=== PATIENT | female | born 1990 | race Caucasian/White ===

== ENCOUNTER 2022-06-10 12:24 | Day surgery (SDC) | payer OTHER ==
[2022-06-10] MEDS ORDERED: LIDOCAINE HCL 2% 100 MG/5 ML IJ ONE (12:25)
[2022-06-10] MEDS ORDERED: DIPRIVAN 200 MG/20 ML IV ONE ×2 (15:29→15:32)
[2022-06-10] MEDS ORDERED: Lactated Ringers 1,000 ML IV ONE ×2 (15:46→17:20)
--- NOTE | 2022-06-10 19:27 | XRAY ---
Indication: Bilateral L4-S1 MBB. Intraoperative fluoroscopy provided for 22 seconds. Single digital spot image submitted for interpretation demonstrates posterior needle tips projecting over the expected left and right L4-S1 nerve roots. Correlate with intraoperative findings/report.
--- NOTE | 2022-06-11 08:29 | XRAY ---
22 seconds of fluoroscopy was used in surgery for a bilateral L4-S1 MBB.
== END 2022-06-10 15:49 | disposition home or self-care (01) ==
LOC: SDC-PAIN 12:24
PROVIDERS: ATTEND Psychiatry & Neurology Pain Medicine
DX: M47.816 Spondylosis without myelopathy or radiculopathy, lumbar region (principal); Z79.899 Other long term (current) drug therapy
CPT/HCPCS: 64493; 64494; 72020; 77002; 81025; J2704

== ENCOUNTER 2022-09-02 14:30 | Day surgery (SDC) | payer OTHER ==
[2022-09-02] MEDS ORDERED: Depo-Medrol 40 MG/ML IM ONE (14:31)
[2022-09-02] MEDS ORDERED: BUPIVACAINE 0.5% VIAL IJ ONE (14:31)
[2022-09-02] MEDS ORDERED: Lactated Ringers 1,000 ML IV ONE (16:45)
[2022-09-02] MEDS ORDERED: DIPRIVAN 200 MG/20 ML IV ONE (16:49)
--- NOTE | 2022-09-02 18:44 | XRAY ---
Indication: Bilateral L4-S1 MBB. Intraoperative fluoroscopy provided for 12 seconds. Single digital spot image submitted for interpretation demonstrates posterior needle tips projecting over the expected left and right L4-S1 nerve roots. Correlate with intraoperative findings/report.
--- NOTE | 2022-09-03 08:41 | XRAY ---
12 seconds of fluoroscopy was used in surgery for a bilateral L4-S1 MBB.
== END 2022-09-02 17:09 | disposition home or self-care (01) ==
LOC: SDC-PAIN 14:30
PROVIDERS: ATTEND Psychiatry & Neurology Pain Medicine
DX: M47.816 Spondylosis without myelopathy or radiculopathy, lumbar region (principal); Z79.899 Other long term (current) drug therapy
CPT/HCPCS: 64493; 64494; 72020; 77002; 81025; J1030; J2704

== ENCOUNTER 2022-10-21 11:50 | Day surgery (SDC) | payer OTHER ==
[2022-10-21] MEDS ORDERED: Depo-Medrol 40 MG/ML IM ONE (11:51)
[2022-10-21] MEDS ORDERED: Xylocaine 1% Vial 30 ML PF IJ ONE (11:51)
[2022-10-21] MEDS ORDERED: BUPIVACAINE 0.5% VIAL IJ ONE (11:51)
[2022-10-21] MEDS ORDERED: DIPRIVAN 200 MG/20 ML IV ONE ×2 (14:22→14:29)
[2022-10-21] MEDS ORDERED: Lactated Ringers 1,000 ML IV ONE (17:03)
--- NOTE | 2022-10-21 19:41 | XRAY ---
Indication: Right L4-S1 RFA. Intraoperative fluoroscopy provided for 22 seconds. 3 digital spot submitted for interpretation demonstrates posterior needle tips projecting over the expected right L4-S1 nerve roots. Correlate with intraoperative findings/report.
--- NOTE | 2022-10-21 20:02 | XRAY ---
22 seconds fluoroscopy time in surgery for right L4-S1 RFA.
== END 2022-10-21 14:48 | disposition home or self-care (01) ==
LOC: SDC-PAIN 11:50
PROVIDERS: ATTEND Psychiatry & Neurology Pain Medicine
DX: M47.816 Spondylosis without myelopathy or radiculopathy, lumbar region (principal); Z79.899 Other long term (current) drug therapy
CPT/HCPCS: 64635; 64636; 72100; 77002; 81025; J1030; J2001; J2704

== ENCOUNTER 2022-10-28 11:36 | Day surgery (SDC) | payer OTHER ==
[2022-10-28] MEDS ORDERED: BUPIVACAINE 0.5% VIAL IJ ONE (11:37)
[2022-10-28] MEDS ORDERED: XYLOCAINE-MPF 1% 5ML SDV IJ ONE (11:37)
[2022-10-28] MEDS ORDERED: Depo-Medrol 40 MG/ML IM ONE (11:37)
[2022-10-28] MEDS ORDERED: DIPRIVAN 200 MG/20 ML IV ONE (14:25)
--- NOTE | 2022-10-28 15:15 | XRAY ---
Indication: Left L4-S1 RFA. Intraoperative fluoroscopy provided for 23 seconds. 5 digital spot images submitted for interpretation demonstrates posterior needle tips projecting over the expected left L4-S1 nerve roots. Correlate with intraoperative findings/report.
[2022-10-28] MEDS ORDERED: Lactated Ringers 1,000 ML IV ONE (16:33)
--- NOTE | 2022-10-28 16:44 | XRAY ---
23 seconds of fluoroscopy was used in surgery for a left L4-S1 RFA.
== END 2022-10-28 15:00 | disposition home or self-care (01) ==
LOC: SDC-PAIN 11:36
PROVIDERS: ATTEND Psychiatry & Neurology Pain Medicine
DX: M47.816 Spondylosis without myelopathy or radiculopathy, lumbar region (principal); Z79.899 Other long term (current) drug therapy
CPT/HCPCS: 64635; 64636; 72100; 77002; 81025; J1030; J2704

== ENCOUNTER 2023-04-21 14:06 | Day surgery (SDC) | payer OTHER ==
[2023-04-21] MEDS ORDERED: Depo-Medrol 40 MG/ML IM ONE (14:07)
[2023-04-21] MEDS ORDERED: BUPIVACAINE 0.5% VIAL IJ ONE (14:07)
[2023-04-21 15:05] LABS: HCG URINE TEST NEGATIVE (NEGATIVE)
[2023-04-21] MEDS ORDERED: DIPRIVAN 200 MG/20 ML IV ONE ×2 (16:08→16:17)
[2023-04-21] MEDS ORDERED: MORPHINE SULFATE 2 MG INJ ONE (16:26)
[2023-04-21] MEDS ORDERED: Lactated Ringers 1,000 ML IV ONE (17:02)
--- NOTE | 2023-04-21 22:06 | XRAY ---
Indication: Bilateral SI joint injection. Intraoperative fluoroscopy provided for 17 seconds. 4 digital spot image submitted for interpretation demonstrates posterior needle tip projecting over the left and right SI joints. Correlate with intraoperative findings/report.
--- NOTE | 2023-04-22 10:21 | XRAY ---
17 seconds of fluoroscopy was used in surgery for a bilateral sacroiliac joint injection.
== END 2023-04-21 16:45 | disposition home or self-care (01) ==
LOC: SDC-PAIN 14:06
PROVIDERS: ATTEND Psychiatry & Neurology Pain Medicine
DX: M46.1 Sacroiliitis, not elsewhere classified (principal); Z79.899 Other long term (current) drug therapy
CPT/HCPCS: 27096; 72202; 77002; 81025; J1030; J2270; J2704; G0260

== ENCOUNTER 2024-02-01 07:32 | Day surgery (SDC) | payer OTHER ==
[2024-02-01] MEDS ORDERED: EXPAREL 133 MG/10 ML VIAL IJ ONE (07:33)
[2024-02-01 08:07] VITALS: RESP 18
[2024-02-01] MEDS ORDERED: TYLENOL EXTRA STRENGTH 500 MG ONE (08:10)
[2024-02-01] MEDS ORDERED: CEFAZOLIN 2 GM-D5W BAG** 2 GM/50 ML ML IV ONE (08:10)
[2024-02-01] MEDS ORDERED: NEURONTIN ONE (08:11)
[2024-02-01] MEDS ORDERED: celeBREX 100 MG ONE (08:11)
[2024-02-01] MEDS ORDERED: Lactated Ringers 1,000 ML IV ONE ×2 (08:11→12:02)
[2024-02-01] MEDS ORDERED: Decadron 4 MG ONE (08:11)
[2024-02-01] MEDS: Decadron 4 MG PO ONE (08:13)
[2024-02-01] MEDS: TYLENOL EXTRA STRENGTH 500 MG PO ONE (08:13)
[2024-02-01] MEDS: NEURONTIN PO ONE (08:13)
[2024-02-01] MEDS: celeBREX 100 MG PO ONE (08:13)
[2024-02-01] MEDS: Lactated Ringers 1,000 ML IV SCH (08:14)
[2024-02-01] MEDS: CEFAZOLIN 2 GM-D5W BAG** 2 GM/50 ML ML IV SCH (08:14)
[2024-02-01 08:38] LABS: Hematocrit 35.4 % (35-47); Hemoglobin 11.6 g/dL (12.0-16.0); Mean Cell Volume 89.2 fL (78-100); Mean Corpuscular Hemoglobin 29.2 pg (26-32); Mean Corpuscular Hgb Concent. 32.8 g/dL (32-36); Mean Platelet Volume 9.3 fL (7.5-11.0); Platelet Count 208 x10^3/uL (150-450); Red Blood Count 3.97 x10^6/uL (4.1-5.4); Red Cell Distribution Width 12.3 % (11.5-14.0)
[2024-02-01 08:42] LABS: HCG SERUM TEST NEGATIVE (NEGATIVE)
[2024-02-01 08:45] LABS: ANION GAP 9.8 MEQ/L (5-15); BILIRUBIN,TOTAL 0.2 mg/dL (0.2-1.3); Calcium 9.1 mg/dL (8.4-10.2); Creatinine 1 0.82 mg/dL (0.52-1.04); EST GLOMERULAR FILTRATION RATE 96.2 ML/MIN; Potassium 3.9 mmol/L (3.5-5.1)
[2024-02-01] MEDS ORDERED: Xylocaine 1% Vial 30 ML PF IJ ONE (09:41)
[2024-02-01] MEDS ORDERED: Marcaine Mpf 0.5% Vial 30 Ml ONE ×2 (09:41→13:01)
[2024-02-01] MEDS ORDERED: Versed 2 MG/2 ML Injection ONE ×2 (10:02→13:03)
[2024-02-01] MEDS ORDERED: SUBLIMAZE 100 MCG/2 ML ONE ×2 (10:03→12:35)
[2024-02-01] MEDS ORDERED: Zofran 4 MG/2 ML VIAL ONE (10:03)
[2024-02-01] MEDS ORDERED: DIPRIVAN 200 MG/20 ML IV ONE ×2 (10:04→10:11)
[2024-02-01] MEDS ORDERED: Xylocaine-Mpf 2% 5 Ml Vial ONE (10:04)
[2024-02-01] MEDS ORDERED: DEXMEDETOMIDINE 80 MCG/20ML-NS IV ONE (10:22)
[2024-02-01] MEDS ORDERED: Hydromorphone 1 mg/ml Injection ONE (12:36)
--- NOTE | 2024-02-01 12:41 | XRAY ---
Indication: Left foot Lapidus arthrodesis, medial collateral ligament repair, and bunion repair. Intraoperative fluoroscopy provided for 4 minutes 10 seconds. 45 digital spot images submitted for interpretation ultimately demonstrates 1st tarsometatarsal fusion with intact hardware. Correlate with intraoperative findings/report.
[2024-02-01] MEDS ORDERED: Epinephrine Preservative Free 1 MG/ML ONE (12:58)
[2024-02-01 14:52] VITALS: O2SAT 95
[2024-02-01 15:17] VITALS: BP 102/66; PULSE 95; TEMP 97
--- NOTE | 2024-02-02 12:05 | OP ---
SURGERY DATE/TIME: 02/01/2024 1001 PREOPERATIVE DIAGNOSES: 1) Left foot pain. 2) Hypermobility of left foot. 3) Hallux abductovalgus. 4) Atavistic metatarsal head. 5) Weakness of medial collateral ligament/laxity of medial collateral ligament. POSTOPERATIVE DIAGNOSES: 1) Left foot pain. 2) Hypermobility of left foot. 3) Hallux abductovalgus. 4) Atavistic metatarsal head. 5) Weakness of medial collateral ligament/laxity of medial collateral ligament. PROCEDURES: 1) Lapidus arthrodesis left tarsometatarsal joint. 2) Silver osteotomy first atavistic metatarsal. 3) Medial collateral ligament repair with capsulotomy left foot. SURGEON: Ed Ayers DPM. STENCIL SPRAYER: None. ANESTHESIA: General. HEMOSTASIS: Thigh tourniquet set to 300 mm of Mercury for 90 total tourniquet minutes. ESTIMATED BLOOD LOSS: Approximately 10 cc. MATERIALS: 4-0 Monocryl, 3-0 Nylon, Naveed InCore Lapidus with a 5.9 x 28 mm post with a 3.5 x 42 and 3.5 x 28 screw, a 1.45 JuggerKnot to a 2.9 Betta Link for the medial collateral ligament repair. INJECTABLES: 30 cc of a 1:1 mixture of 1% lidocaine plain to the left ankle preoperatively and then a popliteal block postoperatively. See anesthesia report for details. INDICATION FOR SURGERY: Mireya is a very pleasant 33-year-old female who presented to my clinic with concerns of hallux abductovalgus and severe bunion to the left foot. The patient had derangement of her sesamoids as well as abductovarus rotation of her first metatarsal. Given the severity and hypermobility that was seen on x-ray, a Lapidus procedure was the selected procedure. The patient was made aware that if there was any adaptation as a result of the bunion, we would have to address this in order to restore the appropriate range of motion and keep the position of the toe adequate. The patient understands all risks, benefits and complications of surgical intervention at this time including but not limited to infection, hematoma, seroma, possibility of delayed wound healing, nonwound healing, possibility of nonbone healing, possibility of delayed bone healing, possible irritating hardware and possible need for removal of said hardware at a later date. No guarantees were provided as to the outcome of surgical intervention. It is at this time, we decided to proceed. DESCRIPTION OF PROCEDURE AND FINDINGS: The patient was brought into the OR and placed on the OR table in the supine position. At this time, general anesthesia was administered until the patient was adequately sedated. A well-padded thigh tourniquet was applied to the patient's left thigh and the tourniquet was set to 300 mm of Mercury. At this time, the left lower extremity was prepped and draped in the typical sterile fashion and lowered onto the surgical field. Following this, an Esmarch was utilized to exsanguinate the leg and the tourniquet was inflated. A linear incision was made just medial to the extensor hallucis longus tendon where this was carried down making sure not to damage any neurovascular structures. Any minor neurovascular structures that were encountered along the way were either cauterized or tied off to prevent postoperative swelling. From this standpoint, the first tarsometatarsal joint was identified and then osteotome was utilized to resect out this joint. Per the InCore Lapidus System a paddle was introduced. Dissection was carried down into the medial and intermediate cuneiform space to get the paddle in. K-wire was introduced into the dorsal lateral aspect of the medial cuneiform this was checked under multiple views and deemed to be adequate. Utilizing the cut side, the cut was made off of the base of the first metatarsal first utilizing a second slot from distal and then utilizing the third slot from distal once rotated into appropriate position paralleling the second tarsometatarsal joint base. A second cut was made into the medial cuneiform. At this time, the joint was resected and two cuts were checked for apposition of the intermetatarsal angle which closed down nicely. At this time, the InCore 5.9 x 28 mm post was introduced into the hole. The reaming from the post were utilized for graft for later. From that standpoint, the joint was fenestrated and prepped for fusion. K-wires were introduced with the sesamoid position reduced into adequate position and distracted to gain access for the joint prep and then compressed. At this time, a 3.5 x 42 was introduced into one leg of the post and a 3.5 x 28 was introduced into the other side of the post gaining excellent compression. From that standpoint, a lateral release was performed deeming the Silver osteotomy necessary due to the fact that it was an Atavistic first metatarsal head. A linear incision was made at the dorsal medial aspect of the first metatarsophalangeal joint this was carried down to the layer of the capsule where a Duval John Day capsulotomy was performed. Following this, partial metatarsal head resection took place until result was adequate making sure not to damage any neurovascular structures and utilizing 18 mm sagittal saw. At this time, the joint was flushed with copious amounts of sterile saline. There was still some residual transverse plain sway so the decision was made to repair the medial collateral ligament utilizing a 1.45 JuggerKnot which was anchored into the base of proximal phalanx utilizing a 2.9 Betta Link holding the toe in appropriate tension distracting this out to the appropriate tension. Range of motion was checked once this was anchored and was deemed to be excellent. From that standpoint, copious amounts of sterile saline were utilized to flush the surgical site. 4-0 Monocryl was utilized to repair the Duval John Day capsulotomy over the top of the internal brace reconstructing the medial collateral ligament. 4-0 Monocryl was utilized to coapt the subcu edges of the skin in a simple interrupted buried-type fashion and then 3-0 Nylon was utilized for coaptation of the skin in a horizontal mattress-type fashion. Following this, a dressing consisting of Betadine, Adaptic, 4x4, Kerlix and CHRISTIANO was applied to the patient's left lower extremity. The patient was then reversed from anesthesia and returned to the postoperative anesthesia care unit with vital signs stable and vascular status intact. The patient handled the anesthesia as well as the procedure without significant complication. Postoperative orders as indicated in the patients discharge chart.
--- NOTE | 2024-02-02 12:25 | XRAY ---
Four minutes and 10 seconds of fluoroscopy was used in surgery for a left foot Lapidus arthrodesis, medial collateral ligament repair, and bunion repair.
== END 2024-02-01 15:10 | disposition home or self-care (01) ==
LOC: SDC 07:32
PROVIDERS: ATTEND Podiatrist Foot & Ankle Surgery
DX: M20.12 Hallux valgus (acquired), left foot (principal); M35.7 Hypermobility syndrome; M79.672 Pain in left foot; M77.42 Metatarsalgia, left foot
CPT/HCPCS: 27695; 28292; 28740; 36415; 73630; 76000; 80053; 84703; 85027; 97116; C1713; J0171; J0690; J1170; J2001; J2250; J2405; J2704; J3010; A9270-GY

== ENCOUNTER 2024-03-22 11:59 | Day surgery (SDC) | payer OTHER ==
[2024-03-22] MEDS ORDERED: XYLOCAINE-MPF 1% 5ML SDV IJ ONE (12:00)
[2024-03-22] MEDS ORDERED: Depo-Medrol 40 MG/ML IM ONE (12:00)
[2024-03-22] MEDS ORDERED: BUPIVACAINE 0.5% VIAL IJ ONE (12:00)
[2024-03-22 12:33] LABS: HCG URINE TEST NEGATIVE (NEGATIVE)
[2024-03-22] MEDS ORDERED: DIPRIVAN 200 MG/20 ML IV ONE (13:30)
--- NOTE | 2024-03-22 14:00 | XRAY ---
Indication: Right L4-S1 RFA. Intraoperative fluoroscopy was provided for 20 seconds. 5 digital spot image submitted for interpretation demonstrates posterior needle tips projecting over expected right L4-S1 nerve roots. Correlate with intraoperative findings/report.
[2024-03-22] MEDS ORDERED: Lactated Ringers 1,000 ML IV ONE (14:06)
--- NOTE | 2024-03-23 14:46 | XRAY ---
20 seconds of fluoroscopy was used in surgery for a right L4-S1 RFA.
== END 2024-03-22 14:05 | disposition home or self-care (01) ==
LOC: SDC-PAIN 11:59
PROVIDERS: ATTEND Psychiatry & Neurology Pain Medicine
DX: M47.816 Spondylosis without myelopathy or radiculopathy, lumbar region (principal)
CPT/HCPCS: 64635; 64636; 72100; 77002; 81025; J1010; J2704

== ENCOUNTER 2024-07-26 11:54 | Day surgery (SDC) | payer OTHER ==
[2024-07-26] MEDS ORDERED: Depo-Medrol 40 MG/ML IM ONE (11:55)
[2024-07-26] MEDS ORDERED: LIDOCAINE HCL 1% 50 MG/5 ML VL PF IJ ONE (11:55)
[2024-07-26] MEDS ORDERED: BUPIVACAINE 0.5% VIAL IJ ONE (11:55)
[2024-07-26] MEDS ORDERED: Decadron 4 MG INJ IV ONE (11:55)
[2024-07-26 12:27] LABS: HCG URINE TEST NEGATIVE (NEGATIVE)
[2024-07-26] MEDS ORDERED: DIPRIVAN 200 MG/20 ML IV ONE ×2 (13:38→13:51)
--- NOTE | 2024-07-26 14:15 | XRAY ---
Indication: Bilateral SI joint and bilateral piriformis injection. Intraoperative fluoroscopy provided for 51 seconds. 5 digital spot image submitted for interpretation demonstrates posterior needle tips projecting over the left/right SI joint and left/right piriformis. Small amount of contrast injected for all needle tip placement. Correlate with intraoperative findings/report.
[2024-07-26] MEDS ORDERED: Lactated Ringers 1,000 ML IV ONE (14:37)
--- NOTE | 2024-07-26 15:00 | XRAY ---
51 seconds of fluoroscopy was used in surgery for a bilateral sacroiliac joint and bilateral piriformis injection.
== END 2024-07-26 14:12 | disposition home or self-care (01) ==
LOC: SDC-PAIN 11:54
PROVIDERS: ATTEND Psychiatry & Neurology Pain Medicine
DX: M46.1 Sacroiliitis, not elsewhere classified (principal); M79.18 Myalgia, other site
CPT/HCPCS: 20553; 27096; 72202; 77002; 81025; J1100; J2001; J2704; Q9966; G0260